=== PATIENT | male | born 1980 | race Two or more races ===

== ENCOUNTER 2019-04-16 23:32 | Emergency (ER) | payer MEDICAID, OTHER ==
[~2019-04-16] VITALS: Ht 162.6 cm; Wt 68.0 kg
--- NOTE | 2019-04-16 23:40 | NUR ---
"BIBA FOR C/O FLU LIKE SYMPTOM. ABD PAIN AND HIGH BLOOD SUGAR READING HIGH X 3 ON FIELD" pt [id number], -sob, nad noted, vss, pending md albert
--- NOTE | 2019-04-16 23:54 | NUR ---
FSBS READING: BESS AWARE
[2019-04-17] MEDS ORDERED: ONDANSETRON HCL/PF 4 MG/2 ML VIAL IVP ONE
[2019-04-17 00:04] LABS: APPEARANCE,URINE Clear (CLEAR); BILIRUBIN,URINE Negative (NEGATIVE); BLOOD, URINE Moderate Ery/uL (NEGATIVE); COLOR,URINE Yellow (YELLOW); KETONES,URINE 15 (NEGATIVE); LEUKOCYTE ESTERASE ,URINE Negative (NEGATIVE); NITRITE, URINE Negative (NEGATIVE); PROTEIN,URINE Negative (NEGATIVE); UGLUCOSE 500 MG/DL mg/dL (NEGATIVE); UROBILINOGEN,URINE 0.2 EU/dL (0.2)
[2019-04-17 00:10] LABS: BASOPHILS % (AUTO) 0.8 % (0.0-2.0); EOSINOPHILS % (AUTO) 3.1 % (0.0-6.0); HEMATOCRIT 37 % (39-51); HEMOGLOBIN 12.2 g/dL (13.5-17.5); LYMPHOCYTES # (AUTO) 0.9 /CMM (0.8-4.8); LYMPHOCYTES % (AUTO) 17.4 % (20.0-44.0); MEAN CORPUSCULAR HGB CONC 33 g/dl (31.0-36.0); MEAN CORPUSCULAR VOLUME 92 fL (80-96); MONOCYTES # (AUTO) 0.2 /CMM (0.1-1.30); MONOCYTES % (AUTO) 3.9 % (2.0-12.0); NEUTROPHILS # (AUTO) 3.7 /CMM (1.8-8.9); NEUTROPHILS % (AUTO) 74.8 % (43.0-81.0); PLATELET COUNT (AUTO) 136 /CMM (150-450); RED BLOOD CELL COUNT(AUTO) 3.99 MIL/uL (4.5-6.0)
[2019-04-17] MEDS ORDERED: INSULIN REGULAR, HUMAN 100 UNIT/ML 10 ML VIAL ONE ×2 (00:16→02:26)
[2019-04-17] MEDS ORDERED: ONDANSETRON HCL/PF 4 MG/2 ML VIAL ONE (00:16)
[2019-04-17 00:22] LABS: CALCIUM, SERUM 9.9 mg/dL (8.5-10.1); CREATININE 1.3 mg/dL (0.6-1.3); POTASSIUM 3.9 mmol/L (3.5-5.1)
[2019-04-17] MEDS ORDERED: KETOROLAC TROMETHAMINE INJ 30 MG/ML VIAL ONE (00:24)
[2019-04-17] MEDS ORDERED: METOCLOPRAMIDE HCL 10 MG/2 ML VIAL ONE (00:24)
[2019-04-17 00:25] LABS: ALBUMIN 3.5 g/dL (3.4-5.0); BILIRUBIN,DIRECT 0.6 mg/dL (0.0-0.2); BILIRUBIN,TOTAL 1.2 mg/dL (0.2-1.0); TOTAL PROTEIN, SERUM 7.9 g/dL (6.4-8.2)
[2019-04-17] MEDS ORDERED: METOCLOPRAMIDE HCL 10 MG/2 ML VIAL IV ONE (00:30)
[2019-04-17] MEDS ORDERED: KETOROLAC TROMETHAMINE INJ 30 MG/ML VIAL IV ONE (00:30)
[2019-04-17 00:49] LABS: BACTERIA,URINE Few /HPF (None Seen); RBC,URINE 81-100 /HPF (0-2); SQUAMOUS EPITHELIAL CELL,UR Rare /HPF (None Seen)
[2019-04-17] MEDS ORDERED: POTASSIUM CHLORIDE 20 MEQ TAB.PRT.SR PO ONE ×2 (02:26→02:30)
[2019-04-17] MEDS ORDERED: IV NS 0.9% 1,000 ML BAG IV ONE ×3 (02:30)
[2019-04-17] MEDS ORDERED: INSULIN REGULAR, HUMAN 100 UNIT/ML 10 ML VIAL IV ONE ×2 (02:30)
[2019-04-17 04:10] LABS: CALCIUM, SERUM 8.6 mg/dL (8.5-10.1); POTASSIUM 3.6 mmol/L (3.5-5.1)
--- NOTE | 2019-04-17 05:37 | NUR ---
IV removed. Catheter intact and site benign. Pressure and 4x4 applied to site. No bleeding noted.Patient given written and verbal discharge instructions. Patient verbalizes understanding of instructions. Patient is ambulatory with steady gait. Refuses offer of [facility] placement. Patient given list of available shelters in surrounding area.
[2019-04-17 06:51] VITALS: BP 108/79
--- NOTE | 2019-04-17 06:51 | NUR ---
Patient discharged to home in stable condition. Written and verbal after care instructions given. Patient verbalizes understanding of instruction.
== END 2019-04-17 06:53 | disposition home or self-care (01) ==
LOC: ER 23:33
DX: E11.65 Type 2 diabetes mellitus with hyperglycemia (principal); F10.10 Alcohol abuse, uncomplicated; Y90.1 Blood alcohol level of 20-39 mg/100 ml; Z91.19 Patient's noncompliance with other medical treatment and regimen
CPT/HCPCS: 36415; 80048 ×2; 80076; 80307; 81001; 82962 ×2; 85025; 93005; 96361; 96374; 96375; 96376; 99284; J1815 ×2; J1885; J2405; J2765; J7030; 81000-TC; G0480

== ENCOUNTER 2020-12-17 19:37 | Emergency (ER) | payer MEDICAID ==
[~2020-12-17] VITALS: Ht 162.6 cm; Wt 86.2 kg
--- NOTE | 2020-12-17 20:00 | NUR ---
BIBS FOR C/O "I CAN NOT THINK STRAIGHT, I AM MENTALLY SICK AND SUICIDAL" REQUESTING VOLUNTARY ADMISSION TO [facility], PT TO BED9, AAOX4, DENIES ANY SOB/CP. VSS, PENDING ER PROVIDER ANA
--- NOTE | 2020-12-17 20:01 | NUR ---
SI PRECAUTIONS STARTED, GOWNED, BELONGINGS IN LOCKER, 1:1 SITTER PROVIDED
[2020-12-17 20:22] LABS: BASOPHILS % (AUTO) 0.5 % (0.0-2.0); HEMATOCRIT 39 % (39-51); HEMOGLOBIN 13.1 g/dL (13.5-17.5); LYMPHOCYTES # (AUTO) 1.6 K/uL (0.8-4.8); LYMPHOCYTES % (AUTO) 23.1 % (20.0-44.0); MEAN CORPUSCULAR HGB CONC 34 g/dl (31.0-36.0); MEAN CORPUSCULAR VOLUME 90 fL (80-96); MONOCYTES # (AUTO) 0.7 K/uL (0.1-1.30); MONOCYTES % (AUTO) 9.8 % (2.0-12.0); NEUTROPHILS # (AUTO) 4.5 K/uL (1.8-8.9); NEUTROPHILS % (AUTO) 65.6 % (43.0-81.0); PLATELET COUNT (AUTO) 168 K/uL (150-450); RED BLOOD CELL COUNT(AUTO) 4.33 MIL/uL (4.5-6.0); WHITE BLOOD COUNT (AUTO) 6.9 K/uL (4.3-11.0)
[2020-12-17] MEDS ORDERED: IV NS 0.9% 1,000 ML IV ONE (20:30)
[2020-12-17 20:41] LABS: CALCIUM, SERUM 8.7 mg/dL (8.5-10.1); CARBON DIOXIDE 23 mmol/L (21-32); CHLORIDE 97 mmol/L (98-107); GLUCOSE 299 mg/dL (74-106); POTASSIUM 4.3 mmol/L (3.5-5.1); SODIUM SERUM 132 mmol/L (136-145); UREA NITROGEN, BLOOD 10 mg/dL (7-18)
[2020-12-17 20:44] LABS: ABG BASE EXCESS -0.7 mmol/L; ABG OXYGEN SATURATION 42.4 % (92.0-98.5); ABG PCO2 43.3 mmHg (35.0-45.0); ABG PH 7.373 (7.350-7.450); ABG PO2 23.6 mmHg (75.0-100.0); COHb 1.3 % (0.5-1.5); MetHb 0.4 % (0.0-1.5); O2Hb 41.7 % (94.0-97.0); SITE, ABG Other; VENT MODE, BG ROOM AIR
[2020-12-17 20:47] LABS: ALANINE AMINOTRANSFERASE 23 U/L (12-78); ALBUMIN 3.4 g/dL (3.4-5.0); ALCOHOL, BLOOD < 3 mg/dL (0-0); ALKALINE PHOSPHATASE 243 U/L (46-116); ASPARTATE AMINOTRANSFERASE 28 U/L (15-37); BILIRUBIN,DIRECT 0.2 mg/dL (0.0-0.2); BILIRUBIN,TOTAL 0.8 mg/dL (0.2-1.0); TOTAL PROTEIN, SERUM 8.9 g/dL (6.4-8.2)
[2020-12-17 20:48] LABS: ACETAMINOPHEN < 2 ug/ml (10-30)
[2020-12-17 21:24] LABS: BILIRUBIN,URINE Negative (NEGATIVE); COLOR,URINE YELLOW (YELLOW); LEUKOCYTE ESTERASE ,URINE Negative (NEGATIVE); NITRITE, URINE Negative (NEGATIVE); PH,URINE 5.5 (5.0-8.0); PROTEIN,URINE Negative (NEGATIVE); UGLUCOSE 100 MG/DL mg/dL (NEGATIVE); UROBILINOGEN,URINE 0.2 EU/dL (0.2)
[2020-12-17 21:45] LABS: BACTERIA,URINE Rare /HPF (None Seen); SQUAMOUS EPITHELIAL CELL,UR Few /HPF (None Seen); WBC,URINE NONE SEEN /HPF (0-3)
--- NOTE | 2020-12-17 22:52 | NUR ---
CLINICAL AND FACESHEE FAXED TO [facility] FOR VOLUNTARY PSYCH ADMISSION.
[2020-12-18] MEDS ORDERED: INSULIN REGULAR, HUMAN 100 UNIT/ML 10 ML VIAL ONE (01:23)
[2020-12-18] MEDS ORDERED: INSULIN REGULAR, HUMAN 100 UNIT/ML 10 ML VIAL IV ONE (01:30)
--- NOTE | 2020-12-18 02:49 | NUR ---
TRANSFER INFORMATION PT ACCEPTED TO [facility] ESPERANZA HUIZAR ACCEPTING MD OCHOA PHONE NUMBER FOR REPORT PT WILL GO TO UNIT 2
--- NOTE | 2020-12-18 02:51 | NUR ---
CALLED [facility] FOR TRANSPORT TO [place] UNIT 2. SPOKE WITH DYLAN. UNIT WILL BE HERE PRIOR TO 4AM.
--- NOTE | 2020-12-18 02:59 | NUR ---
REPORT GIVEN TO GERTRUDIS MCBRIDE FOR DEANNA
--- NOTE | 2020-12-18 03:27 | NUR ---
TRANSPORT AT BEDSIDE REPORT GIVEN TO [facility].
[2020-12-18 03:28] VITALS: BP 141/91
== END 2020-12-18 03:30 ==
LOC: ER 19:40
DX: R45.851 Suicidal ideations (principal); D64.9 Anemia, unspecified; Z20.822 Contact with and (suspected) exposure to COVID-19; E11.65 Type 2 diabetes mellitus with hyperglycemia; R03.0 Elevated blood-pressure reading, without diagnosis of hypertension; Z59.0 Homelessness; Z91.14 Patient's other noncompliance with medication regimen; Z90.49 Acquired absence of other specified parts of digestive tract; K74.60 Unspecified cirrhosis of liver
CPT/HCPCS: 36415; 36600; 80048; 80076; 80143; 80307; 80320; 81001; 82803; 82962 ×4; 85025; 87426; 96361; 96374; 99285; C9803; J1815; J7030; G0480